=== PATIENT | female | born 1970 | race Two or more races ===

== ENCOUNTER 2018-10-25 09:21 | Outpatient (CLI) | payer OTHER | END 2018-10-25 09:29 | disposition home or self-care (01) | LOC: RAD 501 09:21 | DX: M25.572 Pain in left ankle and joints of left foot (principal) ==

== ENCOUNTER 2018-11-01 08:34 | Outpatient (CLI) | payer OTHER | END 2018-11-01 08:47 | disposition home or self-care (01) | LOC: RAD 501 08:34 | DX: S92.515A Nondisplaced fracture of proximal phalanx of left lesser toe(s), initial encounter for closed fracture (principal) ==

== ENCOUNTER → 2018-11-08 | Outpatient (CLI) | payer OTHER ==
[~2018-11-08] MED LIST: CYMBALTA60 MG PO; GLUCOPHAGE XR500 MG PO; LOSARTAN-HCTZ1 EAC1 PO; SYNTHROID100 MCG PO
== END | disposition home or self-care (01) ==
LOC: RAD 501 08:18
DX: S92.515A Nondisplaced fracture of proximal phalanx of left lesser toe(s), initial encounter for closed fracture (principal)

== ENCOUNTER 2018-11-13 05:55 | Day surgery (SDC) | payer OTHER | END 2018-11-13 14:55 | disposition home or self-care (01) | LOC: CIR.AMB 05:55 | DX: S92.515A Nondisplaced fracture of proximal phalanx of left lesser toe(s), initial encounter for closed fracture (principal) ==

== ENCOUNTER 2018-12-13 08:46 | Outpatient (CLI) | payer OTHER | END 2018-12-13 08:58 | disposition home or self-care (01) | LOC: RAD 501 08:46 | DX: S92.511D Displaced fracture of proximal phalanx of right lesser toe(s), subsequent encounter for fracture with routine healing (principal) ==

== ENCOUNTER → 2019-01-22 | Outpatient (CLI) | payer OTHER | END | disposition home or self-care (01) | LOC: RAD 501 09:09 | DX: S92.511D Displaced fracture of proximal phalanx of right lesser toe(s), subsequent encounter for fracture with routine healing (principal) ==

== ENCOUNTER 2021-04-21 08:26 | Outpatient (CLI) | payer OTHER | END 2021-04-21 08:49 | disposition home or self-care (01) | LOC: SONOGRAMA 08:26 | PROVIDERS: ATTEND Specialist | DX: N83.291 Other ovarian cyst, right side (principal); N93.8 Other specified abnormal uterine and vaginal bleeding ==